=== PATIENT | female | born 1950 | race Caucasian/White ===

== ENCOUNTER 2017-04-27 10:09 | Inpatient (IN) ==
--- NOTE | 2017-04-26 18:19 | Discharge Summary ---
<Pau Vyas E - Last Filed: 04/26/17 18:15> Date of Encounter: 04/26/17 - Discharge Diagnosis (1) Arthritis of right hip Priority: Primary Status: Chronic (2) Hypokalemia Priority: Secondary Status: Chronic (3) Glaucoma Priority: Secondary Status: Chronic Qualifiers: Glaucoma type: unspecified Laterality: unspecified laterality Qualified Code(s): H40.9 - Unspecified glaucoma (4) Diverticulosis Priority: Secondary Status: Chronic Qualifiers: Diverticulosis site: unspecified location Diverticulosis bleeding: diverticulosis without bleeding Qualified Code(s): K57.90 - Diverticulosis of intestine, part unspecified, without perforation or abscess without bleeding (5) Systolic murmur Priority: Secondary Status: Chronic (6) HTN (hypertension) Priority: Secondary Status: Chronic Qualifiers: Hypertension type: unspecified Qualified Code(s): I10 - Essential (primary ) hypertension - Discharge Medications Prescriptions: Temazepam [Restoril] 15 mg PO HS #14 capsule Home Medications: Albuterol Sulfate [Albuterol Inhaler] 2 puff IH Q4HR PRN 05/05/16 [History] Biotin 1 mg PO DAILY 05/05/16 [History] EPINEPHrine [Epipen] 0.3 mg IM ONCE PRN 05/05/16 [History] FLUoxetine HCl [Prozac] 40 mg PO QAM 05/05/16 [History] Fluticasone Propionate Nasal [Flonase] 1 spr NS DAILY PRN 05/05/16 [History] Glucosamine HCl 500 mg PO DAILY 05/05/16 [History] Lisinopril [Zestril] 20 mg PO DAILY 05/05/16 [History] Loratadine [Claritin] 10 mg PO DAILY 05/05/16 [History] Montelukast [Singulair] 10 mg PO HS 05/05/16 [History] Spironolactone [Aldactone] 25 mg PO DAILY 05/05/16 [History] Vitamin B Complex 1 each PO DAILY 05/05/16 [History] Aspirin Enteric Coated [Aspirin EC] 325 mg PO DAILY #21 tablet 04/26/17 [Rx] OxyCODONE Immed Rel [Roxicodone 5 MG] 5 mg PO Q6HR PRN 7 Days #28 tablet [Rx] Ascorbate Calcium [Vitamin C] 500 mg PO DAILY 04/27/17 [History] Temazepam [Restoril] 15 mg PO HS #14 capsule 04/30/17 [Rx] Allergies/Adverse Reactions: 3 Allergy/AdvReac Type Severity Reaction Status Date / Time Sulfa (Sulfonamide Allergy Rash Verified 04/27/17 10:37 Antibiotics) Amoxicillin [From Augmentin] AdvReac Gastrointestinal Verified 04/27/17 10:37 Upset clavulanic acid AdvReac Gastrointestinal Verified 04/27/17 10:37 [From Augmentin] Upset Primary care physician: Gilberto Chew MD - Patient Status Disposition: Home, Self-Care Condition: Good - Discharge Instructions Follow Up With: Pau Vyas PAC [Physician Professor Of Political Science] - 05/07/17 9:30 am Kyrie Ramesh MD [Partnered Physician] - 05/27/17 4:10 pm Gilberto Chew MD [Primary Care Provider] - - Hospital Course Hospital course: Ms. Vaughn is a 66 year old female - Time Spent with Patient Total time spent providing and/or coordinating discharge services: <Kyrie Ramesh - Last Filed: 04/30/17 10:58> Date of Encounter: 04/30/17 Time of Encounter: 10:57 - Discharge Diagnosis (1) Obesity (BMI 30.0-34.9) Priority: Secondary Status: Chronic (2) HTN (hypertension) Priority: Secondary Status: Chronic Qualifiers: Hypertension type: unspecified Qualified Code(s): I10 - Essential (primary ) hypertension (3) Fibromyalgia Priority: Secondary Status: Chronic (4) Arthritis of right hip Priority: Primary Status: Chronic (5) Glaucoma Priority: Secondary Status: Chronic Qualifiers: Glaucoma type: unspecified Laterality: unspecified laterality Qualified Code(s): H40.9 - Unspecified glaucoma (6) Diverticulosis Priority: Secondary Status: Chronic Qualifiers: Diverticulosis site: unspecified location Diverticulosis bleeding: diverticulosis without bleeding Qualified Code(s): K57.90 - Diverticulosis of intestine, part unspecified, without perforation or abscess without bleeding (7) Systolic murmur Priority: Secondary Status: Chronic (8) Status post total replacement of right hip Priority: Primary Status: Acute (9) Acute blood loss anemia Priority: Primary Status: Acute Primary care physician: Gilberto Chew MD - Patient Status Functional capacity at discharge: uses cane/walker Overall status at discharge: patient is progressing back to baseline - Hospital Course Hospital course: Ms. Vaughn is a 66 year old female Status post right total hip The patient had an uneventful postoperative course. They received antibiotics and physical therapy and were discharged in stable condition. There will follow -up in the office in 2 weeks. - Time Spent with Patient Total time spent providing and/or coordinating discharge services:
--- NOTE | 2017-04-26 18:20 | Physician Discharge Referral ---
Home Health/Hosp Referral Info Transfer to: Home Health Attending Provider: Dr Kyrie Ramesh - Diagnosis (1) Arthritis of right hip Priority: Secondary Status: Chronic (2) Hypokalemia Priority: Secondary Status: Chronic (3) Glaucoma Priority: Secondary Status: Chronic (4) Diverticulosis Priority: Secondary Status: Chronic (5) Systolic murmur Priority: Secondary Status: Chronic (6) HTN (hypertension) Priority: Secondary Status: Chronic (7) Status post total replacement of right hip Priority: Primary Status: Acute - Respiratory Orders Smoking Cessation: Smoking cessation has been advised. For more information, call the [place] Tobacco Quit Line at 1-767-MCVZ-NOW. - Dressing/Wound Care Site: right hip Type of Dressing/Treatments w/Frequency: Opsite placed. Keep dressing intact until first follow up appointment. If > 50% saturated, notify office, remove dressing and place appropriate dressing back in place. Dressing is water resistant, not water-proof. OK to shower, but do not get dressing wet. - Diet/Nutrition Diet/Nutrition Orders: Regular - Activity Activity Orders: Up ad aster, Ambulate, Chair, Walker Activity: List: Total Hip replacement Precautions Apply cold therapy 3-6x/day for 20 minutes at a time. Encourage ambulation throughout the day and incentive spirometer 10x/hour. Elevate affected extremity as tolerated. Brace: Wear hip abduction pillow when laying/sleeping - Services Needed Following services are medically necessary services: Nursing, Home Health Aide, Physical Therapy, Occupational Therapy - Transfer Medications Prescriptions: OxyCODONE Immed Rel [Roxicodone 5 MG] 5 mg PO Q6HR PRN 7 Days #28 tablet PRN Reason: Pain Aspirin Enteric Coated [Aspirin EC] 325 mg PO DAILY #21 tablet. Home Medications: OxyCODONE Immed Rel [Roxicodone 5 MG] 5 - 10 mg PO Q6HR PRN #40 tablet 05/04/16 [Rx] Albuterol Sulfate [Albuterol Inhaler] 2 puff IH Q4HR PRN 05/05/16 [History] Biotin 1 mg PO DAILY 05/05/16 [History] EPINEPHrine [Epipen] 0.3 mg IM ONCE PRN 05/05/16 [History] FLUoxetine HCl [Prozac] 40 mg PO QAM 05/05/16 [History] Fluticasone Propionate Nasal [Flonase] 1 spr NS DAILY PRN 05/05/16 [History] Glucosamine HCl 500 mg PO DAILY 05/05/16 [History] Lisinopril [Zestril] 20 mg PO DAILY 05/05/16 [History] Loratadine [Claritin] 10 mg PO DAILY 05/05/16 [History] Montelukast [Singulair] 10 mg PO HS 05/05/16 [History] Spironolactone [Aldactone] 25 mg PO DAILY 05/05/16 [History] Vitamin B Complex 1 each PO DAILY 05/05/16 [History] Aspirin Enteric Coated [Aspirin EC] 325 mg PO DAILY #21 tablet. 04/26/17 [Rx] OxyCODONE Immed Rel [Roxicodone 5 MG] 5 mg PO Q6HR PRN 7 Days #28 tablet [Rx] Allergies/Adverse Reactions: 3 Allergy/AdvReac Type Severity Reaction Status Date / Time Sulfa (Sulfonamide Allergy Rash Verified 05/05/16 07:22 Antibiotics) Amoxicillin [From Augmentin] AdvReac Gastrointestinal Verified 05/05/16 07:22 Upset clavulanic acid AdvReac Gastrointestinal Verified 05/05/16 07:22 [From Augmentin] Upset Certification: Further, I certify that my clinical findings support that this patient is homebound (i.e. absences from home require considerable and taxing effort and are for medical reasons or [facility] services or infrequently or short duration when for other reasons) because: Homebound Reason: Post-surgery restriction and or conditions limit ability to leave home Attestation: My signature below is to certify that this patient is under my care and that I, or nurse practitioner, or a physician assistant infant toddler teacher working with me, has a face-to- face encounter with this patient.
[2017-04-27] MEDS ORDERED: CeFAZolin Syr 2,000MG/20 ML 2,000 MG/20 ML SYRINGE IVPB ONE (10:47)
[2017-04-27] MEDS ORDERED: Lidocaine -MPF 1% 2 ML VIAL ID ONE (10:47)
--- NOTE | 2017-04-27 10:51 | Anesthesia Evaluation PreOp ---
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 History: Other (depression/fibromyalgia) Other Medical History: GERD, Other (arthritis/ chronic back pain, obesity) Anesthesia History: No Prior Anesthetic Complications, Past Anesthesia (Had total shoulder arthroplasty last year without problems) Alcohol Use: none Drug use: none Medications and Allergies Albuterol Sulfate [Albuterol Inhaler] 2 puff IH Q4HR PRN 05/05/16 [History] Biotin 1 mg PO DAILY 05/05/16 [History] EPINEPHrine [Epipen] 0.3 mg IM ONCE PRN 05/05/16 [History] FLUoxetine HCl [Prozac] 40 mg PO QAM 05/05/16 [History] Fluticasone Propionate Nasal [Flonase] 1 spr NS DAILY PRN 05/05/16 [History] Glucosamine HCl 500 mg PO DAILY 05/05/16 [History] Lisinopril [Zestril] 20 mg PO DAILY 05/05/16 [History] Loratadine [Claritin] 10 mg PO DAILY 05/05/16 [History] Montelukast [Singulair] 10 mg PO HS 05/05/16 [History] Spironolactone [Aldactone] 25 mg PO DAILY 05/05/16 [History] Vitamin B Complex 1 each PO DAILY 05/05/16 [History] Aspirin Enteric Coated [Aspirin EC] 325 mg PO DAILY #21 tablet. 04/26/17 [Rx] OxyCODONE Immed Rel [Roxicodone 5 MG] 5 mg PO Q6HR PRN 7 Days #28 tablet [Rx] Ascorbate Calcium [Vitamin C] 500 mg PO DAILY 04/27/17 [History] 3 Allergy/AdvReac Type Severity Reaction Status Date / Time Sulfa (Sulfonamide Allergy Rash Verified 04/27/17 10:37 Antibiotics) Amoxicillin [From Augmentin] AdvReac Gastrointestinal Verified 04/27/17 10:37 Upset clavulanic acid AdvReac Gastrointestinal Verified 04/27/17 10:37 [From Augmentin] Upset - Meds/Allergy Pre-op Review Medications Reviewed: Yes Allergies Reviewed: Yes Beta Blockers on Current Med List: No Anesthesia Results - Imaging EKG: report reviewed (sinus), image reviewed Anesthesia Exam Selected Entries 04/27/17 10:48 Temperature 97.2 F L Pulse Rate 87 Respiratory Rate 18 Blood Pressure 172/85 O2 Sat by Pulse Oximetry 98 Weight: 94 kg BMI 33 NPO (# of Hours): over 8 hours - HEENT Pupil (Motor): Pupils equal Mallampati: II Teeth: Normal Oral Opening: Greater than 3 - Cardiac Rhythm: Regular Murmur: Systolic - Pulmonary Breath Sounds: bilateral Clear Respiratory Effort: Symmetrical Anesthesia Assess/Plan ASA Score: 3 Modified [place] Scale for Level of Consciousness: Cooperative, oriented, and tranquil Anesthetic Plan: General Monitoring Plan: Standard Monitors Recovery Plan: PACU
[2017-04-27] MEDS ORDERED: Ringers Solution, Lactated 1,000 ML IVC SCH ×3 (11:00→15:23)
--- NOTE | 2017-04-27 11:42 | History & Physical Report ---
Date of Encounter: 04/27/17 Time of Encounter: 11:41 24 Hour HP Update - Instructions Instructions: If the History and Physical is less than 30 days old and was completed prior to A.M. admission and or procedure and has NOT been updated on calendar day of procedure please complete this update prior to performing procedure. - Update Patient reports changes in Medical Condition: No Changes in examination, assessment, or condition: No Changes in Medication: No Preop tests/diagnostics Reviewed: Yes Surgery Remains Indicated: Yes Consent for Planned Operative Procedure(s) Verified: Yes - Pre-Operative Checklist Preoperative Checklist Indicated: No Prophylactic Antibiotic Ordered: Yes Is VTE Prophylaxis Indicated?: Yes
[2017-04-27] MEDS ORDERED: *HR* Succinylcholine 200 MG/10 ML VIAL IVP ONE (11:47)
[2017-04-27] MEDS ORDERED: *HR* Midazolam HCl 2 MG/2 ML VIAL ONE (11:47)
[2017-04-27] MEDS ORDERED: Ondansetron 4 MG/2 ML VIAL ONE (11:47)
[2017-04-27] MEDS ORDERED: Lidocaine -MPF 2% 2 ML VIAL ONE (11:47)
[2017-04-27] MEDS ORDERED: Dexamethasone 4 MG/ML VIAL ONE (11:47)
[2017-04-27] MEDS ORDERED: *HR* FentaNYL (PF) 100 MCG/2 ML VIAL ONE (11:47)
[2017-04-27] MEDS ORDERED: *HR* Propofol 200 MG/20 ML VIAL IVP ONE (11:48)
[2017-04-27] MEDS ORDERED: *HR* Promethazine 25 MG/ML VIAL IVP PRN (11:52)
[2017-04-27] MEDS ORDERED: *HR* HYDROmorphone (PF) 1 MG/ML SYRINGE IVP PRN (11:52)
[2017-04-27] MEDS ORDERED: Ondansetron 4 MG/2 ML VIAL IVP ONE (11:52)
[2017-04-27] MEDS ORDERED: *HR* Labetalol 20 MG/4 ML SYRINGE IVP PRN (11:52)
[2017-04-27] MEDS ORDERED: Lidocaine -MPF 4% 5 ML AMPUL ONE (12:21)
[2017-04-27] MEDS ORDERED: *HR* HYDROmorphone 2 MG/ML SYRINGE ONE (12:56)
--- NOTE | 2017-04-27 13:32 | Orthopedic Operative Note ---
Date of procedure: 04/27/17 Pre-op diagnosis: Right hip arthritis Post-op diagnosis: same Procedure: Procedure: Right Total Hip Replacment robotic-assisted Estimated blood loss: 300 cc Hardware: Metal and polyethylene replacement. Phil DM Cup: 52 cup 7 Femoral size stem Head: 4 head with Jayla Procedural Notes: Grade 4 arthritic changes femoral head acetabular socket, procedure performed with robotic assistance. Operative procedure: The patient was brought to the operating room and placed on the operating room table. After general anesthesia was administered the patient was placed in the lateral decubitus position with the operative leg up. All pressure points were padded appropriately and the head was stabilized in the neutral position. The operative extremity was prepped and draped in the sterile surgical fashion patient received IV antibiotic prior to skin incision. 3 Steinmann pins were placed in the iliac crest 3 cm proximal to the anterior superior iliac spine this was for the robotic-assisted sensor. This was done through a small 2 cm incision. A standard posterior approach is made to the operative hip, the incision was made through the skin and subcutaneous tissue hemostasis was obtained with Bovie cautery. Using careful sharp dissection the fascia was identified and incised exposing the external rotators. The femoral checkpoint was placed leg length was measured at this time utilizing robotic assistance. Patient noted to be 3 mm shorter on the operative side. The external rotators were released off the greater trochanter and tagged with #2 FiberWire suture. The capsule was T'd open and the hip was brought into internal rotation. Patient noted to have grade 4 arthritic changes femoral head. The femoral neck cut was made at the appropriate level roughly 10 mm proximal to the lesser trochanter aced on preoperative templating. An anterior capsulotomy was performed for the anterior retractor. Soft tissues removed from the acetabulum. Patient noted to have grade 4 arthritic changes acetabulum. The acetabulum checkpoint was placed confirmed. The acetabulum was then mapped with robotic assistance. Based on the preoperative plan the acetabulum was reamed in one step with a 51 reamer. The 52 acetabulum was impacted with robotic assistance and 40 degrees of abduction and 20 degrees of anteversion. The hip was brought back in to internal rotation and prepared with the sweat box attendant followed by the canal finder followed by the reaming process to a size 7 broaching process in 20 degrees anteversion. It was broached up to the appropriate size 7. Trial reduction revealed leg lengths close to normal. The femoral implant was impacted in place in 20 degrees of anteversion. Trial reduction found the hip to be stable with 4 head and Jayla. The trials were removed and the real implants were impacted in place. The hip was reduced, patient had robotic confirmed leg length of 3 mm longer than the contralateral side. The hip had excellent stability with forward flexion to 90 degrees adduction of 30 degrees and internal rotation of 60 degrees. The hip had no shuck. The hips after 2 minutes with a Betadine saline solution. It was irrigated out with 2 L of pulse irrigation. The checkpoints were removed, Steinmann pins were removed. The pain incision and the hip were closed by the PA. The deep tissue was irrigated and closed deep with #1 PDS suture superficially with 0 PDS suture and skin was closed with Dermabond and zip tie. The patient was placed in a sterile dressing and abduction pillow. The patient was extubated and transferred to the recovery room in stable condition. Anesthesia: VENUS Surgeon: Kyrie Ramesh Cryolite Recovery Operator: Pau Vyas Condition: stable Disposition: PACU
[2017-04-27] MEDS ORDERED: Ethanol\\Acetic Acid\\Na Ace\\Ben 1,000 ML IRRIG.SOLN IR ONE (14:17)
--- NOTE | 2017-04-27 14:33 | Anesthesia Evaluation Post Op ---
Date of Encounter: 04/27/17 Time of Encounter: 14:32 - Vital Signs Vital Signs: Vital Signs Temperature 97.2 F L 04/27/17 10:40 Pulse Rate 87 04/27/17 10:40 Respiratory Rate 18 04/27/17 10:40 Blood Pressure 172/85 04/27/17 10:40 O2 Sat by Pulse Oximetry 98 04/27/17 10:40 Temperature 97.8 F 04/27/17 14:05 Pulse Rate 103 04/27/17 14:25 Respiratory Rate 16 04/27/17 14:25 Blood Pressure 148/75 04/27/17 14:25 O2 Sat by Pulse Oximetry 99 04/27/17 14:25 - Lungs Lungs: Clear Ascult./Percussion - Airway Airway: Non-obstructed - Cardiovascular Regular Rate - Mental Status Mental Status: Alert & Oriented, Answers Appropriately - Pain Pain Scale: 3 Pain Scale used: Numeric (1 - 10) - Nausea Vomiting Nausea Vomiting: Not Present - Hydration Hydration: NPO, Has not voided - Discharge PostOp Status: Transfer Patient to floor
[2017-04-27 14:36] LABS: Hematocrit 37.7 % (35.3-44.9); Hemoglobin 12.1 g/dL (11.5-15.4)
[2017-04-27] MEDS ORDERED: Naloxone 0.4 MG/ML INJ IVP PRN (15:23)
[2017-04-27] MEDS ORDERED: *HR* OxyCODONE Immed Rel 5 MG TABLET PO PRN (15:23)
[2017-04-27] MEDS ORDERED: *HR* EPINEPHrine 0.3 MG/0.3 ML (PEN) IM PRN (15:23)
[2017-04-27] MEDS ORDERED: MOM Conc 10 ML UD.LIQ PO PRN (15:23)
[2017-04-27] MEDS ORDERED: Sennosides 8.6 MG TABLET PO PRN (15:23)
[2017-04-27] MEDS ORDERED: Fluticasone Propionate Nasal 50 MCG/SPRAY BOTTLE NS PRN (15:23)
[2017-04-27] MEDS: Ondansetron 4 MG/2 ML VIAL IVP PRN (16:17)
[2017-04-27] MEDS: CeFAZolin Premix DUPLEX 2,000 MG/50 ML BAG IVPB SCH ×2 (16:17→23:42)
[2017-04-27] MEDS ORDERED: Ascorbic Acid 500 MG TABLET PO SCH (17:00)
[2017-04-27] MEDS ORDERED: *HR* Enoxaparin 30 MG/0.3 ML SYRINGE SQ SCH (18:00)
[2017-04-27] MEDS: *HR* Enoxaparin 30 MG/0.3 ML SYRINGE SQ SCH (18:29)
[2017-04-27] MEDS: *HR* OxyCODONE Immed Rel 5 MG TABLET PO PRN (20:03)
[2017-04-27] MEDS: Temazepam 15 MG CAPSULE PO PRN (22:25)
[2017-04-28] MEDS: *HR* OxyCODONE Immed Rel 5 MG TABLET PO PRN ×3 (02:31→21:28)
[2017-04-28] MEDS: *HR* Enoxaparin 30 MG/0.3 ML SYRINGE SQ SCH ×2 (05:09→16:52)
[2017-04-28 06:05] LABS: BUN/Creatinine Ratio 15 (6-26); Blood Urea Nitrogen 11 mg/dL (7-20); Calcium 8.5 mg/dL (8.6-10.8); Carbon Dioxide 23 mEq/L (19-29); Chloride 101 mEq/L (98-109); Glucose 141 mg/dL (70-99); Osmolality,Calculated 280 (280-300); Potassium 4.3 mEq/L (3.5-4.5); Sodium 134 mEq/L (136-145); eGFR For African Americans > 60 (> 60); eGFR For Non-African Americans > 60 (> 60)
[2017-04-28 06:07] LABS: Hematocrit 33.6 % (35.3-44.9); Hemoglobin 10.6 g/dL (11.5-15.4)
--- NOTE | 2017-04-28 07:19 | Orthopedics Progress Note ---
Date of Encounter: 04/28/17 Time of Encounter: 07:18 - Assessment and Plan (1) Obesity (BMI 30.0-34.9) Current Visit: Yes Status: Chronic (2) HTN (hypertension) Current Visit: No Status: Chronic Qualifiers: Hypertension type: unspecified Qualified Code(s): I10 - Essential (primary ) hypertension (3) Fibromyalgia Current Visit: No Status: Chronic (4) Arthritis of right hip Current Visit: No Status: Chronic (5) Glaucoma Current Visit: No Status: Chronic Qualifiers: Glaucoma type: unspecified Laterality: unspecified laterality Qualified Code(s): H40.9 - Unspecified glaucoma (6) Diverticulosis Current Visit: No Status: Chronic Qualifiers: Diverticulosis site: unspecified location Diverticulosis bleeding: diverticulosis without bleeding Qualified Code(s): K57.90 - Diverticulosis of intestine, part unspecified, without perforation or abscess without bleeding (7) Systolic murmur Current Visit: No Status: Chronic (8) Status post total replacement of right hip Current Visit: No Status: Acute Subjective Interval history: Patient was seen this morning doing well without complaints. Afebrile vital signs stable. Operative extremity: Neurovascularly intact Dressing clean dry and intact Calves nontender Assessment and plan: Continue with postoperative care Hematocrit 33 Objective Vital signs: Vital Signs Temp Pulse Resp BP Pulse Ox 04/28/17 06:49 98.0 F 95 17 134/76 99 04/28/17 03:59 97.8 F 87 16 114/74 96 04/28/17 00:58 97.8 F 85 16 115/71 96 04/27/17 19:34 98.0 F 97 18 136/72 95 04/27/17 16:02 98.5 F 91 14 118/73 96 04/27/17 15:03 97 04/27/17 14:55 98.4 F 98 15 120/77 98 04/27/17 14:44 97.7 F 95 16 131/73 98 04/27/17 14:35 97.7 F 98 16 139/73 99 04/27/17 14:25 103 16 148/75 99 04/27/17 14:15 102 16 150/93 97 04/27/17 14:05 97.8 F 116 16 145/88 97 04/27/17 10:48 97.2 F L 87 18 172/85 98 04/27/17 10:40 97.2 F L 87 18 172/85 98 Intake and Output 04/27/17 04/27/17 04/28/17 15:59 23:59 07:59 Intake Total 50 / 50 200 / 200 Output Total 300 / 300 400 / 400 1200 / 1200 Balance -300 / -300 -350 / -350 -1000 / -1000 Intake: IV Fluids 50 / 50 Ancef Premix DUPLEX 2,000 mg In 50 / 50 50 ml @ 100 mls/hr IVPB Q8HR TATO Rx#:[id number] Oral 200 / 200 Output: Urine 0 / 0 400 / 400 1200 / 1200 Estimated Blood Loss 300 / 300 Other: Weight 94.801 kg - Labs CBC & BMP: 04/28/17 04:58 04/28/17 04:58 Labs: Abnormal lab results Hgb 10.6 g/dL (11.5-15.4) L D 04/28/17 04:58 Hct 33.6 % (35.3-44.9) L 04/28/17 04:58 Sodium 134 mEq/L (136-145) L 04/28/17 04:58 Glucose 141 mg/dL (70-99) H 04/28/17 04:58 Calcium 8.5 mg/dL (8.6-10.8) L 04/28/17 04:58 - VTE Documentation of Mechanical Device: Venous foot pump, device Consult Discharge Plan - Plan Referrals: Gilberto Chew MD [Primary Care Provider] -
[2017-04-28] MEDS: *HR* HYDROmorphone (PF) 1 MG/ML SYRINGE IVP PRN ×2 (08:49→13:55)
[2017-04-28] MEDS: FLUoxetine 20 MG CAPSULE PO SCH (08:49)
[2017-04-28] MEDS: Vitamin B Complex/Vit C/Vit E 1 EACH TABLET PO SCH (08:49)
[2017-04-28] MEDS: Multivit/Ca/Min/Fe/FA 1 TAB TABLET PO SCH (08:50)
[2017-04-28] MEDS: Ascorbic Acid 500 MG TABLET PO SCH (08:50)
[2017-04-28] MEDS: Spironolactone 25 MG TABLET PO SCH (08:50)
[2017-04-28] MEDS: Loratadine 10 MG TABLET PO SCH (08:50)
[2017-04-28] MEDS: Lisinopril 20 MG TABLET PO SCH (08:50)
[2017-04-28] MEDS ORDERED: (Biotin [Biotin] 1 MG) PO SCH (09:00)
[2017-04-28] MEDS: Ondansetron 4 MG/2 ML VIAL IVP PRN ×2 (10:54→21:50)
--- NOTE | 2017-04-28 14:04 | Event Note ---
Date of Encounter: 04/28/17 Time of Encounter: 12:55 PCR- POD#1 Right THR robotic 04/27 Gadiel PCR - Patient seen at bedside. Pain control: Adequate Participating in PT. All questions and concerns addressed. Educated on use of incentive spirometer, ambulation, and hydration. Patient educated on post-operative restrictions and care. Addressed: see above. D/C plan:.home health pending therapy recommendation
[2017-04-28] MEDS: Temazepam 15 MG CAPSULE PO PRN (21:50)
[2017-04-29] MEDS: *HR* OxyCODONE Immed Rel 5 MG TABLET PO PRN ×3 (01:26→17:24)
[2017-04-29] MEDS: *HR* Enoxaparin 30 MG/0.3 ML SYRINGE SQ SCH ×2 (06:30→17:25)
[2017-04-29 07:06] LABS: BUN/Creatinine Ratio 16 (6-26); Blood Urea Nitrogen 11 mg/dL (7-20); Calcium 8.5 mg/dL (8.6-10.8); Carbon Dioxide 24 mEq/L (19-29); Chloride 101 mEq/L (98-109); Glucose 110 mg/dL (70-99); Osmolality,Calculated 276 (280-300); Potassium 4.1 mEq/L (3.5-4.5); Sodium 133 mEq/L (136-145); eGFR For African Americans > 60 (> 60); eGFR For Non-African Americans > 60 (> 60)
[2017-04-29 07:10] LABS: Hematocrit 30.6 % (35.3-44.9); Hemoglobin 9.6 g/dL (11.5-15.4)
--- NOTE | 2017-04-29 08:20 | Orthopedics Progress Note ---
Date of Encounter: 04/29/17 Time of Encounter: 08:19 - Assessment and Plan (1) Obesity (BMI 30.0-34.9) Current Visit: Yes Status: Chronic (2) HTN (hypertension) Current Visit: No Status: Chronic Qualifiers: Hypertension type: unspecified Qualified Code(s): I10 - Essential (primary ) hypertension (3) Fibromyalgia Current Visit: No Status: Chronic (4) Arthritis of right hip Current Visit: No Status: Chronic (5) Glaucoma Current Visit: No Status: Chronic Qualifiers: Glaucoma type: unspecified Laterality: unspecified laterality Qualified Code(s): H40.9 - Unspecified glaucoma (6) Diverticulosis Current Visit: No Status: Chronic Qualifiers: Diverticulosis site: unspecified location Diverticulosis bleeding: diverticulosis without bleeding Qualified Code(s): K57.90 - Diverticulosis of intestine, part unspecified, without perforation or abscess without bleeding (7) Systolic murmur Current Visit: No Status: Chronic (8) Status post total replacement of right hip Current Visit: No Status: Acute (9) Acute blood loss anemia Current Visit: Yes Status: Acute Subjective Interval history: Patient was seen this morning doing well without complaints. Afebrile vital signs stable. Operative extremity: Neurovascularly intact Dressing clean dry and intact Calves nontender Assessment and plan: Continue with postoperative care Hematocrit 29 Objective Vital signs: Vital Signs Temp Pulse Resp BP Pulse Ox 04/29/17 06:33 98.4 F 108 16 125/70 92 04/28/17 23:51 98.7 F 117 18 113/68 93 04/28/17 19:37 98.4 F 115 16 104/63 94 04/28/17 16:42 98.5 F 107 16 104/56 95 04/28/17 12:11 98.0 F 98 17 124/69 97 Intake and Output 04/28/17 04/29/17 04/29/17 23:59 07:59 15:59 Intake Total 500 / 500 850 / 850 Balance 500 / 500 850 / 850 Intake: Oral 500 / 500 850 / 850 Other: # Voids 1 1 - Labs CBC & BMP: 04/29/17 05:40 04/29/17 05:40 Labs: Abnormal lab results Hgb 9.6 g/dL (11.5-15.4) L 04/29/17 05:40 Hct 30.6 % (35.3-44.9) L 04/29/17 05:40 Sodium 133 mEq/L (136-145) L 04/29/17 05:40 Glucose 110 mg/dL (70-99) H 04/29/17 05:40 Calculated Osmolality 276 (280-300) L 04/29/17 05:40 Calcium 8.5 mg/dL (8.6-10.8) L 04/29/17 05:40 - VTE Documentation of Mechanical Device: Venous foot pump, device Consult Discharge Plan - Plan Referrals: Pau Vyas PAC [Physician Chair Trimmer] - 05/07/17 9:30 am Kyrie Ramesh MD [Partnered Physician] - 05/27/17 4:10 pm Gilberto Chew MD [Primary Care Provider] -
[2017-04-29] MEDS: Ascorbic Acid 500 MG TABLET PO SCH (09:06)
[2017-04-29] MEDS: Loratadine 10 MG TABLET PO SCH (09:06)
[2017-04-29] MEDS: FLUoxetine 20 MG CAPSULE PO SCH (09:07)
[2017-04-29] MEDS: Spironolactone 25 MG TABLET PO SCH (09:07)
[2017-04-29] MEDS: Multivit/Ca/Min/Fe/FA 1 TAB TABLET PO SCH (09:07)
[2017-04-29] MEDS: Lisinopril 20 MG TABLET PO SCH (09:07)
[2017-04-29] MEDS: Vitamin B Complex/Vit C/Vit E 1 EACH TABLET PO SCH (09:07)
--- NOTE | 2017-04-29 12:41 | Event Note ---
Date of Encounter: 04/29/17 Time of Encounter: 11:25 PCR- POD#2 Right THR robotic 04/27 Gadiel PCR - Patient seen at bedside. Pain control: Adequate Participating in PT. All questions and concerns addressed. Educated on use of incentive spirometer, ambulation, and hydration. Patient educated on post-operative restrictions and care. Addressed: see above. D/C plan: therapy approved patient to go to daughter's home with home therapy, DC today
[2017-04-30] MEDS: *HR* OxyCODONE Immed Rel 5 MG TABLET PO PRN ×2 (03:05→10:49)
[2017-04-30] MEDS: *HR* Enoxaparin 30 MG/0.3 ML SYRINGE SQ SCH (05:15)
[2017-04-30] MEDS: Loratadine 10 MG TABLET PO SCH (10:49)
[2017-04-30] MEDS: Ascorbic Acid 500 MG TABLET PO SCH (10:49)
[2017-04-30] MEDS: FLUoxetine 20 MG CAPSULE PO SCH (10:50)
[2017-04-30] MEDS: Lisinopril 20 MG TABLET PO SCH (10:50)
[2017-04-30] MEDS: Multivit/Ca/Min/Fe/FA 1 TAB TABLET PO SCH (10:50)
[2017-04-30] MEDS: Spironolactone 25 MG TABLET PO SCH (10:50)
[2017-04-30] MEDS: Vitamin B Complex/Vit C/Vit E 1 EACH TABLET PO SCH (10:50)
--- NOTE | 2017-04-30 10:59 | Orthopedics Progress Note ---
Date of Encounter: 04/30/17 Time of Encounter: 10:58 - Assessment and Plan (1) Obesity (BMI 30.0-34.9) Current Visit: Yes Status: Chronic (2) HTN (hypertension) Current Visit: No Status: Chronic Qualifiers: Hypertension type: unspecified Qualified Code(s): I10 - Essential (primary ) hypertension (3) Fibromyalgia Current Visit: No Status: Chronic (4) Arthritis of right hip Current Visit: No Status: Chronic (5) Glaucoma Current Visit: No Status: Chronic Qualifiers: Glaucoma type: unspecified Laterality: unspecified laterality Qualified Code(s): H40.9 - Unspecified glaucoma (6) Diverticulosis Current Visit: No Status: Chronic Qualifiers: Diverticulosis site: unspecified location Diverticulosis bleeding: diverticulosis without bleeding Qualified Code(s): K57.90 - Diverticulosis of intestine, part unspecified, without perforation or abscess without bleeding (7) Systolic murmur Current Visit: No Status: Chronic (8) Status post total replacement of right hip Current Visit: No Status: Acute (9) Acute blood loss anemia Current Visit: Yes Status: Acute Subjective Interval history: Patient was seen this morning doing well without complaints. Afebrile vital signs stable. Operative extremity: Neurovascularly intact Dressing clean dry and intact Calves nontender Assessment and plan: Continue with postoperative care Hemoglobin 9.6 discharged today Objective Vital signs: Vital Signs Temp Pulse Resp BP Pulse Ox 04/30/17 07:03 98.6 F 95 16 115/56 93 04/30/17 00:20 98.4 F 94 18 124/73 93 04/29/17 18:50 98.7 F 88 17 114/71 92 04/29/17 14:26 98.3 F 102 14 117/69 95 Intake and Output 04/29/17 04/30/17 04/30/17 23:59 07:59 15:59 Intake Total 270 / 270 50 / 50 Balance 270 / 270 50 / 50 Intake: Oral 270 / 270 50 / 50 Other: Meal Dinner Percent of Meal Consumed 10% # Voids 1 1 1 - Labs CBC & BMP: 04/29/17 05:40 04/29/17 05:40 Labs: Abnormal lab results Hgb 9.6 g/dL (11.5-15.4) L 04/29/17 05:40 Hct 30.6 % (35.3-44.9) L 04/29/17 05:40 Sodium 133 mEq/L (136-145) L 04/29/17 05:40 Glucose 110 mg/dL (70-99) H 04/29/17 05:40 Calculated Osmolality 276 (280-300) L 04/29/17 05:40 Calcium 8.5 mg/dL (8.6-10.8) L 04/29/17 05:40 - VTE Documentation of Mechanical Device: Venous foot pump, device Consult Discharge Plan - Plan Referrals: Pau Vyas PAC [Physician Bioinformatics Support Specialist] - 05/07/17 9:30 am Kyrie Ramesh MD [Partnered Physician] - 05/27/17 4:10 pm Gilberto Chew MD [Primary Care Provider] - Prescriptions: Temazepam [Restoril] 15 mg PO HS #14 capsule
[2017-04-30 12:00] VITALS: BP 119/69
== END 2017-04-30 13:52 | disposition home or self-care (01) | DRG 470 ==
LOC: SAMDAY 10:09 → 3NENU 15:04
PROVIDERS: ADMIT Orthopaedic Surgery; ATTEND Orthopaedic Surgery